=== PATIENT | female | born 1960 | race Two or more races ===

== ENCOUNTER 2021-08-04 18:22 | Emergency (ER) | payer OTHER ==
[~2021-08-04] VITALS: Ht 167.6 cm; Wt 63.0 kg
[2021-08-04 18:37] VITALS: BP_SYST 151
[2021-08-04] MEDS ORDERED: KETOROLAC TROMETHAMINE 60 MG/2 ML VIAL IM ONE ×2 (20:45→20:58)
[2021-08-04] MEDS ORDERED: predniSONE 20 MG TABLET PO ONE (20:45)
[2021-08-04 21:00] VITALS: BP_SYST 151
== END 2021-08-04 21:00 | disposition home or self-care (01) ==
LOC: SED 18:22
DX: M54.32 Sciatica, left side (principal); E11.9 Type 2 diabetes mellitus without complications; Z88.5 Allergy status to narcotic agent
CPT/HCPCS: 96372; 99283; J1885; J7512